=== PATIENT | female | born 1960 | race African-American/Black ===

== ENCOUNTER 2016-07-01 22:05 | Inpatient (IN) | payer SELFPAY ==
--- NOTE | ~2016-07-01 | DS ---
Discharge Summary [place] [address] [facility] [place]. [address] NAME: ERNESTO CAPPS : 56 STATUS : DIS IN PAT#: [id number] AGE: 56 ADM/REG DATE : 07/02/16 MR#: [id number] REPORT SERV DATE: 07/23/16 DICTATED BY: ERIC RUDOLPH DATE: 07/22/16 REPORT STATUS : Draft TRANSCRIBED BY: MODL DATE: 07/22/16 ADMISSION DATE: 07/02/2016 DISCHARGE DATE: 07/22/2016 DISCHARGE DIAGNOSES: 1. Metastatic stage IV urothelial bladder cancer, previous laparoscopic radical anterior pelvic exenteration with lymph node dissection with open ileal conduit on 05/30/2015 and subsequent chemotherapy in 2015. 2. Partial small bowel obstruction secondary to #1. 3. Abdominal pain secondary to #1 and #2. 4. Moderate protein-calorie malnutrition. 5. Diabetes mellitus type 2. 6. Grief with anxiety. IMAGIN. CT abdomen and pelvis, 07/01/2016, impression: High-grade partial small bowel obstruction pattern involving a relatively short segment of the jejunum. The transition zone is not discretely identified. 2. Abdominal series, 07/03/2016, impression: No acute cardiopulmonary process demonstrated. NG tube in good position. Distention of proximal small bowel persistent but appears improved from previous. 3. KUB, 07/02/2016, impression: NG/OG tube in place with its distal tip projecting over the distal stomach and proximal duodenum. Persistent but improving small bowel dilatation on CT from 07/01/2016. There is gas and moderate stool in the colon. 4. Abdominal x-ray, 07/08/2016, impression: Unremarkable gas pattern. No evidence of obstruction. 5. Abdominal x-ray, 07/09/2016, impression: Surgical changes. Residual contrast is present, primarily in the distal colon. No evidence of acute abnormality within the abdomen. 6. CT abdomen and pelvis, 07/15/2016, impression: Main finding is that despite distended jejunum, contrast does pass through the small bowel into the colon and extends to the distal descending colon. COURSE OF HOSPITAL STAY: Please refer to history and physical dictated by Dr. Jose De Jesus Reid on 07/02/2016 for complete admission details as well as consultation note by Dr. Gomez, Dr. Dutta, Dr. Martin, and Dr. Meet Pittman. Please also review interim notes on 07/06/[address] Moreno, 07/13/[address] Jaquez, and 07/19/[address] Moreno. This patient is a 56-year-old female who presented with a history of high-grade urothelial bladder cancer status post pelvic exenteration with ileal conduit for neuro bladder, who presented to [facility] Emergency Room with complaints of a five-day history of nausea and vomiting and inability to tolerate any significant oral intake. The patient was found to have signs of a small bowel obstruction. Surgery was consulted. The patient was evaluated. NG tube has been placed initially upon admission. It was noted that the patient was not improving despite decompression attempts with the NG tube. The patient was taken to surgery on 07/04/2016 for a diagnostic lap and converted to an open exploratory laparotomy. Discharge Summary [place] [address] [facility] [place]. [address] NAME: ERNESTO CAPPS : 56 STATUS : DIS IN PAT#: [id number] AGE: 56 ADM/REG DATE : 07/02/16 MR#: [id number] REPORT SERV DATE: 07/23/16 DICTATED BY: ERIC RUDOLPH DATE: 07/22/16 REPORT STATUS : Draft TRANSCRIBED BY: JIN DATE: 07/22/16 It was also noted extensive lysis of adhesions, small bowel bypass with enteroenterostomy, and NG tube placement. It was discussed possible TPN being started. Due to the risk would have been greater than the benefit of the end-stage intraabdominal malignancy, this was discontinued. IV fluids were also discontinued. The patient's pain has been managed with Dilaudid IV. Due to progression of disease, per Oncology, the patient was referred to hospice. The patient was seen and evaluated by [facility] and has agreed to go home with hospice today. Family is at bedside. The patient does deny any questions at this time and is in agreement with the treatment plan. Discharge medications will be per [facility]. This discharge took less than 30 minutes. /NELDAL Eric Rudolph NP / [id number] CC: Tremaine Pimentel MD
--- NOTE | ~2016-07-01 | HP ---
History And Physical [place] [id number] [facility] [place]. [address] NAME: ERNESTO CAPPS : 56 STATUS : ADM IN [facility]#: [id number] AGE: 56 ADM/REG DATE : 07/02/16 MR#: [id number] REPORT SERV DATE: 07/02/16 DICTATED BY: HAMMAD BRADLEY DATE: 07/02/16 REPORT STATUS : Draft TRANSCRIBED BY: JIN DATE: 07/02/16 DATE OF ADMISSION: 07/02/2016 POINT OF ENTRY: [facility] Emergency Department. PRIMARY CARE PHYSICIAN: None at this time but does go to the [facility]. CHIEF COMPLAINT: Nausea, vomiting, and rectal pain. HISTORY OF PRESENT ILLNESS: Ms. Capps is a 56-year-old female with a history of high- grade urothelial bladder cancer, status post pelvic exenteration with ileal conduit for neobladder, who presents to emergency department today with a five-day history of nausea, vomiting, inability to tolerate any significant oral intake, as well as constipation and rectal and vaginal pain. The patient states over the last five days she has had nausea, vomiting, inability to tolerate any oral intake including food and water. She states she has not had any bowel movements since Thursday when she had a very small bowel movement. She denies any abdominal pain, but does report some rectal pain as well as chronic vaginal discomfort and pain. The patient states she recently saw [facility], Dr. Nevarez, and was given some prescriptions for a vaginal suppository as well as some vaginal cream which is yet to be filled. She denies any fevers, night sweats, chills, cough, sputum production, chest pain, shortness of breath, diarrhea, melena, hematochezia, hemoptysis, or hematemesis. Comprehensive review of systems otherwise negative unless listed in the history of present illness. Initial evaluation in the emergency department notable for a white count of 10,600, BUN of 71, creatinine of 2.29. CT scan of the abdomen and pelvis shows a high-grade partial small- bowel obstruction involving a short segment of the jejunum with no clear transition zone, does show significant fecal stasis of the colon. The patient was subsequently admitted to the Hospitalist Service for further evaluation and management. PREVIOUS MEDICAL HISTORY: 1. High-grade urothelial bladder cancer, status post pelvic exenteration with ileal conduit creation. 2. COPD, not on home oxygen. 3. Hypertension. 4. Insulin-dependent diabetes mellitus, type 2. Hemoglobin A1c of 8.1. 5. Prior history of high-grade small-bowel obstruction. 6. Recent admission for opiate-induced constipation. SURGICAL HISTORY: 1. Pelvic exenteration with lymph node dissection with ileal conduit and urinary diversion History And Physical [address] [address] NAME: ERNESTO CAPPS : 56 STATUS : ADM IN PAT#: [id number] AGE: 56 ADM/REG DATE : 07/02/16 MR#: [id number] REPORT SERV DATE: 07/02/16 DICTATED BY: HAMMAD BRADLEY DATE: 07/02/16 REPORT STATUS : Draft TRANSCRIBED BY: JIN DATE: 07/02/16 creation. 2. x3. ALLERGIES: NO KNOWN DRUG ALLERGIES. HOME MEDICATIONS: 1. Tylenol 500 to 1000 mg daily p.r.n. 2. Norvasc 10 mg daily. 3. Estradiol vaginal cream 4 to 5 nights weekly. 4. Hydralazine 10 mg b.i.d. 5. Insulin sliding scale. 6. Levemir 12 units b.i.d. 7. Reglan 10 mg q.6 hours p.r.n. 8. Toprol-XL 50 mg daily. SOCIAL HISTORY: Denies any tobacco or illicits. Mother with diabetes. Father with diabetes and liver cancer. Siblings with diabetes and hypertension. LABS AND IMAGIN. White count 10.6, hemoglobin 13.5, hematocrit 39.7, and platelet count 393. 2. Sodium is 126, potassium 2.9, chloride 77, carbon dioxide 36, BUN 71, creatinine 2.29, glucose is 195, calcium is 9.6, protein is 9.1, albumin is 4.3, bilirubin is 0.4, ALT is 16, AST 16, and alkaline phosphatase is 108. 3. Lipase is 153. 4. Urinalysis: Spec gravity 1.015 with trace ketones, cloudy appearance with no evidence of any infection. 5. CT scan of the abdomen and pelvis shows high-grade partial small-bowel obstruction involving a short segment of the jejunum. Transition zone is not discretely identified. Large retained fecal material in ascending and transverse colon which may represent clinically significant fecal stasis. Status post cystectomy and ileal conduit construction, right anterior pelvic wall. Poorly defined pelvic soft tissue planes were there as infiltration in the region of the original bladder bed and apparent thickening of the sigmoid colon. This is poorly characterized due to lack of oral and IV contrast and low-dose CT technique. PHYSICAL EXAMINATION: VITAL SIGNS: Temperature is 98.6 degrees Fahrenheit, pulse is 98, respirations 16, saturating 97% on room air. Blood pressure 120/66. On recheck, blood pressure 134/58, heart rate of 111. GENERAL: The patient is awake, alert, in no acute distress, resting comfortably in bed. She is a well-developed, well-nourished, -[place] female. HEENT: Atraumatic and normocephalic. Slightly dry mucous membranes. Pupils equal, round, reactive to light and accommodation. Extraocular eye movements are intact. No scleral icterus. NECK: No jugular venous distention or carotid bruits. CARDIAC: Tachycardic rate, regular rhythm. No murmurs or gallops. Normal S1, S2. LUNGS: Clear to auscultation bilaterally. No wheezes, rhonchi, or crackles. History And Physical [address] [address] NAME: ERNESTO CAPPS : 56 STATUS : ADM IN [facility]#: [id number] AGE: 56 ADM/REG DATE : 07/02/16 MR#: [id number] REPORT SERV DATE: 07/02/16 DICTATED BY: HAMMAD BRADLEY DATE: 07/02/16 REPORT STATUS : Draft TRANSCRIBED BY: JIN DATE: 07/02/16 ABDOMEN: Does have some high-pitched hyperactive bowel sounds in all quadrants, more so in the left upper quadrant. She has no rebound, guarding, or rigidity. She has an ileal conduit with urinary diversion in place in the right lower quadrant EXTREMITIES: Warm, perfused. No cyanosis, clubbing, or edema. SKIN: Warm and dry. PSYCH: Affect appropriate. NEURO: Alert and oriented x3. Cranial nerves 2 through 12 grossly intact. Speech is normal. Gait not assessed. ASSESSMENT AND PLAN: Ms. Capps is a 56-year-old female, who presents with a few days of nausea, vomiting, and constipation found to have evidence of a high-grade partial small- bowel obstruction. PROBLEM LIST: 1. High-grade partial small-bowel obstruction. 2. Acute kidney injury. 3. Hyponatremia. 4. Hypokalemia. 5. Fecal stasis. 6. Rectal pain. 7. Vaginal pain. 8. Leukocytosis. 9. History of high-grade urothelial bladder cancer. PLAN: 1. High-grade partial small-bowel obstruction. Dr. Gomez, General Surgery, was contacted by the ER physician and will see patient in the morning. We will place an NG tube and provide aggressive IV fluid hydration as well as pain control and antiemetics. We will follow up KUB in the morning. 2. Acute kidney injury. All likely secondary to patient's poor oral intake for the past five days as well as nausea and vomiting. Provide aggressive IV fluid hydration. Checking urine lytes as well as a renal ultrasound. 3. Hypokalemia. Repletion per MD given acute kidney injury. She has received a total of 40 mEq of potassium chloride here in the emergency department. 4. Fecal stasis. We will provide some p.r.n. suppositories in an attempt to clear up apparent fecal stasis on CT scan. 5. Rectal pain. Unclear etiology at this time. CT scan of the abdomen and pelvis did show fecal stasis as well as small-bowel obstruction as well as some ill-defined abnormalities in the area of the original bladder bed with apparent thickening of the sigmoid colon. Unclear as to what this may represent or if this is the etiology of her rectal pain. I will defer to Surgery for further evaluation. 6. Vaginal pain. The patient reports she recently had [facility] evaluation by Dr. Nevarez, was prescribed vaginal suppositories, some Estrace cream, which we will continue. Given continued concern about vaginal pain by patient, we will ask Dr. Nevarez to see patient here in the hospital. 7. DVT prophylaxis. Heparin subcu. History And Physical [place] [address] [facility] [place]. [address] NAME: ERNESTO CAPPS : 56 STATUS : ADM IN [facility]#: [id number] AGE: 56 ADM/REG DATE : 07/02/16 MR#: [id number] REPORT SERV DATE: 07/02/16 DICTATED BY: HAMMAD BRADLEY DATE: 07/02/16 REPORT STATUS : Draft TRANSCRIBED BY: JIN DATE: 07/02/16 CODE STATUS: The patient wished to be full code. PARVEEN/JIN Hammad Bradley MD / [id number] CC: Kapil Moreno M.D.
--- NOTE | ~2016-07-01 | CN ---
Consultation Report [place] [address] [place]. [address] NAME: ERNESTO CAPPS : 56 STATUS : ADM IN [facility]#: [id number] AGE: 56 ADM/REG DATE : 07/02/16 MR#: [id number] REPORT SERV DATE: 07/02/16 DICTATED BY: ENOCH HAYES DATE: 07/02/16 REPORT STATUS : Draft TRANSCRIBED BY: MODL DATE: 07/02/16 DATE OF CONSULTATION: 07/02/2016 CHIEF COMPLAINT: Small-bowel obstruction. HISTORY OF PRESENT ILLNESS: A 56-year-old female with an extensive past medical and surgical history for high-grade urothelial bladder cancer, status post pelvic exoneration with ileal conduit creation. The patient reports over approximately six days ago, she started having nausea and vomiting and she has had constipation with minimal flatus. She denies any abdominal pain throughout this time. She has no fever or chills. No shortness of breath or chest pain. She reports she had a similar episode last year in September that resolved with medical management and no operation. REVIEW OF SYSTEMS: All systems reviewed and negative except as mentioned in the HPI. ALLERGIES: NO KNOWN DRUG ALLERGIES. PAST MEDICAL HISTORY: 1. High-grade urothelial bladder cancer, status post pelvic exoneration with ileal conduit creation and chemotherapy. 2. COPD, now on oxygen, not requiring daily breathing treatments or inhaler treatments. 3. Hypertension. 4. Insulin-dependent diabetes. 5. History of high-grade small-bowel obstruction now resolved with medical management alone. 6. Opiate-induced constipation. SURGICAL HISTORY: 1. Robotic pelvic exoneration and lymph node dissection with ileal conduit creation. 2. x3. 3. Gluteal abscess I and D. FAMILY HISTORY: Father and brother with liver cancer and a great grandmother with breast cancer. SOCIAL HISTORY: Currently denies any tobacco, alcohol, or drugs. The patient does have a remote history of 40+ pack-year smoking, as well as drinking in the past. Lives with here in [place]. HOME MEDICATIONS: Tylenol, Norvasc, estradiol, vaginal cream, hydralazine, insulin, Levemir, Reglan, and Toprol-XL. PHYSICAL EXAMINATION: VITAL SIGNS: Blood pressure 170/81, pulse of 83, respiratory rate 18, and O2 sats 93% on Consultation Report [place] [id number] [place]. [address] NAME: ERNESTO CAPPS : 56 STATUS : ADM IN PAT#: [id number] AGE: 56 ADM/REG DATE : 07/02/16 MR#: [id number] REPORT SERV DATE: 07/02/16 DICTATED BY: ENOCH HAYES DATE: 07/02/16 REPORT STATUS : Draft TRANSCRIBED BY: JIN DATE: 07/02/16 room air. Temperature 97.6. GENERAL: Well-developed, well-nourished, in no acute distress, black female, appears stated age. HEENT: Normocephalic, atraumatic. PERRLA. EOMI. Mucous membranes are moist. NECK: No lymphadenopathy. Trachea midline. CARDIOVASCULAR: Regular rate and rhythm. LUNGS: Clear to auscultation bilaterally. ABDOMEN: Soft, nondistended, nontender. Bowel sounds are present. The ileal conduit stoma is viable. EXTREMITIES: No clubbing, cyanosis, or edema. 2+ pulses. MUSCULOSKELETAL: Moves all extremities well. NEURO: Cranial nerves 2 through 12 are intact. A and O x3. LABORATORY DATA: White blood cell count 2.6. No shift noted. Hematocrit 39.7 and platelets 393. Urinalysis negative. Sodium 126, potassium 2.9, chloride 77, bicarb 36, BUN 71, creatinine 2.29, glucose 195, calcium 9.6, albumin 4.3. LFTs normal. Lactate 0.9. CT scan showed a high-grade small-bowel obstruction with jejunum dilation to 4.1 cm with a transition zone noted to be in the pelvis. The patient also was noted to have a large stool burden. ASSESSMENT AND PLAN: A 56-year-old female with small-bowel obstruction, hyponatremia, hypokalemia, acute kidney injury, all signs of dehydration, lactate were normal, and a constipation. 1. IV fluid resuscitate the patient. Keep the patient n.p.o. for bowel rest with nasogastric tube placement. The patient should also be encouraged to ambulate in the halls. 2. If no resolution of small-bowel obstruction in approximately 48 hours, then a small bowel followthrough should be ordered. DICTATED BY: MD RAUL Dobbs/JIN Spencer Hayes M.D. / [id number] CC: Kapil Moreno M.D.
--- NOTE | ~2016-07-01 | IDS ---
Interim Discharge Summary [facility] [address] [place]. [address] NAME: ERNESTO CAPPS : 56 STATUS : ADM IN PAT#: [id number] AGE: 56 ADM/REG DATE : 07/02/16 MR#: [id number] REPORT SERV DATE: 07/14/16 DICTATED BY: MALVIN MCCULLOUGH DATE: 07/14/16 REPORT STATUS : Draft TRANSCRIBED BY: JIN DATE: 07/14/16 ADMISSION DATE: 07/02/2016 DISCHARGE DATE: Date that I took over this patient is 07/08/2016 and have cared for this patient until 07/14/2016. DIAGNOSES: Please also see interim discharge summary dictated by Dr. Moreno. So far the diagnoses are: 1. Metastatic bladder cancer. 2. Status post extensive abdominal surgery for the metastatic bladder cancer and small bowel obstruction. These surgeries include lysis of multiple adhesions, status post gastrostomy, status post enteroenteric anastomosis, status post ileal conduit. 3. Despite the extensive abdominal surgeries the patient has had, the patient is doing fairly well, and requires quite a bit of assistance with ambulation, but she has been ambulating with the help of assistance, and with help of a walker. 4. Chronic severe malnutrition for which the patient continues to get TPN. 5. The only new event that occurred during my time that I took care of this patient was that she was started on TPN for chronic severe malnutrition, as the patient could not take enough by mouth. Hence, the patient is now on TPN and getting a little stronger. CONSULTANTS: Consults on this patient have been of course General Surgery and Oncology. DISPOSITION: Disposition of this patient is to inpatient rehab given the multitude of problems, and the severity of medical issues, and including the fact that the patient is on TPN. However, social issues include that the patient does not have any insurance. Hence porter sample case are trying to obtain insurance and trying to place her in inpatient rehab. If this does not happen soon and if the patient gets stronger, we may have to present options to family saying that she may have to go home with home health versus inpatient rehab. However, with the condition that she is in right now family prefers inpatient rehab and we are waiting on this. SITA/JIN Malvin Mccullough M.D. / [id number] CC: Malvin Mccullough M.D.
--- NOTE | ~2016-07-01 | IDS ---
Interim Discharge Summary [facility] [address] [place]. [address] NAME: ERNESTO CAPPS : 56 STATUS : ADM IN PAT#: [id number] AGE: 56 ADM/REG DATE : 07/02/16 MR#: [id number] REPORT SERV DATE: 07/07/16 DICTATED BY: JUAN MORENO DATE: 07/07/16 REPORT STATUS : Draft TRANSCRIBED BY: MODL DATE: 07/07/16 ADMISSION DATE: 07/02/2016 DISCHARGE DATE: ADDENDUM: Addendum to the interim summary on Ernesto Capps. . Her medical oncologist Dr. Banks has been consulted. I talked with his partner Dr. Mendiola covering for the weekend, and then I see the notes from both Dr. Mendiola and Dr. Banks, who indicates that the patient might be a candidate for specialized therapy if she is able to eat, ambulate, and be up at home. GUDELIA/JIN Juan Moreno M.D. / [id number] CC: Juan Moreno M.D.
--- NOTE | ~2016-07-01 | OP ---
Record Of Operation [place] [address] [facility] [place]. [address] NAME: ERNESTO MOSS : 56 STATUS : ADM IN PAT#: [id number] AGE: 56 ADM/REG DATE : 07/02/16 MR#: [id number] REPORT SERV DATE: 07/04/16 DICTATED BY: MAO DUTTA DATE: 07/04/16 REPORT STATUS : Draft TRANSCRIBED BY: MODL DATE: 07/04/16 DATE OF PROCEDURE: 07/04/2016 PREOPERATIVE DIAGNOSES: 1. Small-bowel obstruction. 2. History of extensive pelvic exenteration with ileal conduit for bladder cancer by Dr. Moss. POSTOPERATIVE DIAGNOSES: 1. Small-bowel obstruction. 2. History of extensive pelvic exenteration with ileal conduit for bladder cancer by Dr. Moss. 3. Recurrent metastatic bladder cancer. PROCEDURE: 1. Diagnostic laparoscopy converted to open exploratory laparotomy. 2. Extensive lysis of adhesions. 3. Small bowel bypass with enteroenterostomy. 4. Open Sarahy gastrostomy tube 24-South African. SURGEONS: Mao Dutta MD. MANAGER CONSUMER INSIGHTS: Saud. ANESTHESIA: General. ESTIMATED BLOOD LOSS: 25 mL. SPECIMEN: Small bowel implant frozen, which was confirmed adenocarcinoma. COMPLICATIONS: None. BRIEF HISTORY: Ms. Moss is a 56-year-old woman who was about a year out from an extensive pelvic exenteration with cystectomy and ileal conduit by Dr. Moss. She had T4 disease which made her high risk for recurrence. She had presented with small-bowel obstruction back in March and resolved with NG tube decompression. She re-presented, small-bowel follow-through this time showed a high-grade partial small bowel obstruction. She had tenderness and tachycardia this morning and elected for surgery. Diagnostic laparoscopy with possible open possible bowel resection was recommended. The procedure with the risks including bleeding, infection, injury to surrounding structures, fecal fistula, and hernia were all explained. She agreed to proceed. DESCRIPTION OF PROCEDURE: After consent was obtained, she was taken to the operating room and placed in supine position on the operating table. General endotracheal anesthesia was administered. The abdomen was then prepped and draped in normal sterile fashion. We removed the urostomy appliance and placed a Wright catheter within the urostomy and blew up Record Of Operation [place] [address] [place]. [address] NAME: ERNESTO MOSS : 56 STATUS : ADM IN PAT#: [id number] AGE: 56 ADM/REG DATE : 07/02/16 MR#: [id number] REPORT SERV DATE: 07/04/16 DICTATED BY: MAO DUTTA DATE: 07/04/16 REPORT STATUS : Draft TRANSCRIBED BY: MODL DATE: 07/04/16 the balloon and excluded this in the field using a towel with tra. Preoperative antibiotics were administered. SCDs were placed. Time-out was performed. We began by making a cutdown on the left upper quadrant and placed a 12 mm trocar. The abdomen was insufflated to 15 mmHg of CO2 gas. Scope was inserted. There was no evidence of injury upon placement of trocar. She had extensive adhesions up to the anterior abdominal wall with decompressed small bowel. We initially placed a 5 mm trocar in the left lower quadrant and used a laparoscopic scissors to take down adhesions so that we could place an additional trocar for continued adhesiolysis. We took down all the adhesions from the anterior midline down to the pelvis where we met significant firm adhesions, which were not safe to take laparoscopically. We then removed all trocars, and then, we made a midline laparotomy incision using a 10-blade scalpel. The fascia was opened throughout the length of the incision. There were additional lysis of adhesions that had to take place in the cephalad aspect in order to extend the skin incision cephalad. We then continued adhesiolysis down to all the small bowel over to the ileal conduit which we could palpate using the balloon in the Wright. We took down extensive bowel to bowel and bowel sidewall adhesions. We got down the pelvis and noticed that it was socked in the pelvis extensively with very hard nodules down in the pelvis. It was difficult to tell what was proximal and what was distal at this point. We were able to free up some of the small bowel away from these nodules and took a specimen and sent it to pathology. Frozen section returned as metastatic adenocarcinoma. Given that she was socked in the pelvis and her ureters course through that area, there was no way to safely dissect this out. There would be no way to get all the remaining a malignancy out as well and therefore, we elected for bypass. We spent considerable amount of time, dissecting the bowel out. We identified the terminal ilium; however, the terminal ilium dove into the pelvis as at all sections of the proximal bowel. We identified what we felt to be the terminal ilium and bypassed to section as proximal as possible away from this; however, it does go into the pelvis. We placed bowel clamps on both the dilated bowel and decompressed bowel and placed towels to control contamination. We placed stay sutures of 2-0 silk suture and then a posterior row of 2-0 silk Lembert. We opened the bowel, both the dilated and decompressed bowel and then created a hand-sewn two-layer anastomosis using 3-0 Vicryl runners in a canal fashion and then an anterior row of 2-0 silk Lembert. We had a good palpable lumen. We then removed our bowel clamps. Given the fact that she has malignancy down the pelvis where there was bowel even at the bypass was entering into, we felt that placing a gastrostomy tube would be prudent as she likely will obstruct at some point in future and this will allow her to vent without having to live with an NG tube. 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 We grasped the stomach with a Martha clamp and pulled it caudally. We placed two 2-0 silk pursestring sutures and then created a gastrotomy using electrocautery. We brought a 24- South African gastrostomy tube and placed it through our previous 12 mm cutdown incision and then into the stomach. We blew up the balloon. We then tied our pursestring sutures starting with the inner one and then the outer one. I then placed two pexing sutures from the stomach to the anterior abdominal wall. It was secured at 3 cm at the skin. We had two serosal tears, but no enterotomies. Both were closed using interrupted 2-0 silk sutures. We then irrigated the abdomen copiously. Hemostasis was good. We then closed the fascia using interrupted #1 PDS sutures. Subcutaneous tissues were irrigated with sterile saline Record Of Operation [facility] [address] [place]. [address] NAME: ERNESTO MOSS : 56 STATUS : ADM IN [facility]#: [id number] AGE: 56 ADM/REG DATE : 07/02/16 MR#: [id number] REPORT SERV DATE: 07/04/16 DICTATED BY: MAO DUTTA DATE: 07/04/16 REPORT STATUS : Draft TRANSCRIBED BY: JIN DATE: 07/04/16 and closed using tra. The abdomen was clean. Sterile dressing was applied. The patient tolerated the procedure well. She was sent to the recovery room in stable condition. DENZEL/JIN Mao Dutta MD / [id number] CC: Kapil Moreno M.D.
--- NOTE | ~2016-07-01 | IDS ---
Interim Discharge Summary [facility] [address] [place]. [address] NAME: ERNESTO CAPPS : 56 STATUS : ADM IN PAT#: [id number] AGE: 56 ADM/REG DATE : 07/02/16 MR#: [id number] REPORT SERV DATE: 07/20/16 DICTATED BY: JUAN MORENO DATE: 07/20/16 REPORT STATUS : Draft TRANSCRIBED BY: MODL DATE: 07/20/16 ADMISSION DATE: 07/02/2016 DISCHARGE DATE: CONSULTANTS: 1. Spencer Gomez M.D. and Pedro Dutta MD, Surgery. 2. Esau Martin MD, Urology. 3. Meet Pittman M.D., Oncology. PROBLEM LIST: 1. Metastatic stage IV urothelial bladder cancer, despite previous laparoscopic radical anterior pelvic exoneration with lymph node dissection and open ileal conduit on 05/30/2015 and subsequent chemotherapy in 2015. 2. Ongoing partial small bowel obstruction with ileus despite previous surgical lysis of adhesion with G-tube placement and small bowel bypass on 07/04/2016. 3. Chief previous acute kidney injury from volume depletion, resolved. 4. Previous hyponatremia from volume depletion, resolved. 5. Diabetes mellitus type 2 with previous diabetic ketoacidosis, currently with low sugars. 6. Grief with anxiety. 7. History of chronic obstructive pulmonary disease in a heavy smoker. 8. History of alcohol use. 9. Moderate protein-calorie malnutrition. HISTORY: This patient has ongoing issues of similar nature to when I dictated my last interim summary on 07/07/2016. In the interim, I have discussed with her Dr. Meet Pittman and with his partner, Dr. Winters, about the TPN; and at this point in time, the risk would be greater than the benefit as end-stage intraabdominal malignancy it is not going to be able to be treated, it is not going to improve with TPN, so we have weaned her off the TPN. I have also stopped her IV fluids. The patient is able to take some things by mouth, both liquid and nutrition. She is very anorexic. She intermittently has the G-tube unclamped to relieve nausea. The other issue has been pain management. She had been using Dilaudid IV on a pretty regular basis, but I have talked to her and her multiple times about the importance of trying to prepare a transition plan for when she is not in the hospital. Currently, she still has a Duragesic patch 50 mcg size and she has p.r.n. Dilaudid available intravenously, but we are predominantly having nursing gave it to her orally and we have gradually been titrating the dose up. Her pain is primarily in the pelvis bilaterally and radiates to her low back, also radiates down her right leg. Because of that radiation down her right leg, I have also been adding gabapentin in case there is a neuropathic component to her pain and she has a lot of anxiety about this process, so I have added p.r.n. Ativan as well. She is now DNR/DNI per discussions with myself and with Dr. Winters. She has agreed to hospice consultation, they have met with her as of today, she still does not want to make a Interim Discharge Summary [address] [address] NAME: ERNESTO CAPPS : 56 STATUS : ADM IN PAT#: [id number] AGE: 56 ADM/REG DATE : 07/02/16 MR#: [id number] REPORT SERV DATE: 07/20/16 DICTATED BY: JUAN MORENO DATE: 07/20/16 REPORT STATUS : Draft TRANSCRIBED BY: JIN DATE: 07/20/16 decision about it. On multiple occasions, I have talked with her and her family together about the fact that this appears to be a terminal condition and that Oncology will not give her immunotherapy unless she is able to increase her nutrition dramatically and maintain it in a normal sense for at least a month. I have told her and family that odds of that her extraordinarily small, and therefore, it is most likely that the malignancy will take her life in the next few months. I, therefore, advised her and her family to have hospice assistance. The patient states she understands her poor prognosis. She still hoping for a miracle. I have assured her that we would all be thrilled if such took place, but that she ought to make plans in case it does not. At this point in time, she has not wanted to make any plan whatsoever. I am hoping that if we can get her pain medicine and home medicines orally, then we can make realistic plans for discharge to home. The patient understandably has grief and anxiety. Her , son, mother, and multiple others have been updated on a regular basis. GUDELIA/JIN Juan Moreno M.D. / [id number] CC: Juan Moreno M.D.
--- NOTE | ~2016-07-01 | CN ---
Consultation Report [facility] [address] [place]. [address] NAME: ERNESTO CAPPS : 56 STATUS : ADM IN [facility]#: [id number] AGE: 56 ADM/REG DATE : 07/02/16 MR#: [id number] REPORT SERV DATE: 07/05/16 DICTATED BY: EVAN MARTIN DATE: 07/05/16 REPORT STATUS : Draft TRANSCRIBED BY: MODChucho DATE: 07/05/16 CONSULTATION DATE OF CONSULTATION: 07/03/2016 REASON FOR CONSULTATION: History of bladder cancer, now with bowel obstruction. HISTORY OF PRESENT ILLNESS: Ms. Capps is a 56-year-old female, who is well known to me. She has a history of aggressive bladder cancer, for which she underwent a robotic anterior pelvic exenteration with ileal conduit urinary diversion about a year ago. She was found to have T4 N+ disease. She underwent adjuvant chemotherapy. She has done okay in the interim. She has intermittent problems with bowel obstruction and vaginal pain. Recent CT scans done at [facility] demonstrated nonspecific findings in the pelvis with no obvious evidence of widespread metastatic disease. She presented to the hospital with severe abdominal and pelvic pain with nausea and vomiting. CT scan was performed, which demonstrated a partial small-bowel obstruction, which was confirmed on small-bowel follow- through. She has failed conservative management in the past. There are plans and process for potential surgical intervention. I have been asked to become re-involved in her case given her history of a complex urinary diversion. PAST MEDICAL HISTORY: Bladder cancer, status post pelvic exenteration with ileal conduit; COPD; hypertension; diabetes; history of bowel obstruction; constipation. PAST SURGICAL HISTORY: Bladder cancer surgery as above and C-sections. ALLERGIES: NO KNOWN DRUG ALLERGIES. MEDICATIONS: Reviewed and listed in the chart. SOCIAL HISTORY: No smoking, drinking, or illegal drugs. She is accompanied by her family. REVIEW OF SYSTEMS: A 12-point review of systems was performed. Pertinent positives are listed in the HPI. PHYSICAL EXAMINATION: VITAL SIGNS: She is afebrile. She is tachycardic into the 110s to 120s. Her blood pressure is elevated into the 170s over 80s. She is saturating 94% on room air. GENERAL: She is in no acute distress. She appears her stated age. HEENT: Her head is normocephalic and atraumatic. There is an NG tube in place. ABDOMEN: Distended and tender. She has no CVA tenderness. Her right lower quadrant urostomy is pink and productive, urine is clear. EXTREMITIES: There is no cyanosis or edema. NEUROLOGIC: She is alert and oriented x3. Consultation Report [place] [id number] [address] NAME: ERNESTO CAPPS : 56 STATUS : ADM IN PAT#: [id number] AGE: 56 ADM/REG DATE : 07/02/16 MR#: [id number] REPORT SERV DATE: 07/05/16 DICTATED BY: EVAN MARTIN DATE: 07/05/16 REPORT STATUS : Draft TRANSCRIBED BY: JIN DATE: 07/05/16 LABORATORY DATA: Her white count is 9.6, hemoglobin 13.2. Creatinine is 0.9. IMAGING: CT scan of the abdomen and pelvis was performed, personally reviewed and interpreted by myself. She has dilated loops of small bowel. She has loss of tissue planes in the pelvis. These findings are consistent with a partial small-bowel obstruction. ASSESSMENT AND PLAN: Ms. Capps has a recurring partial small-bowel obstruction. I recommend continuing conservative therapy as directed by General Surgery, I certainly appreciate their help with this complex case. Should surgical intervention be necessary, I am available at any time to assist in any way that is needed. I will continue to follow the patient closely. CALEB/JIN Evan Martin MD / [id number] CC: Evan Martin MD
--- NOTE | ~2016-07-01 | IDS ---
Interim Discharge Summary [facility] [address] [place]. [address] NAME: ERNESTO CAPPS : 56 STATUS : ADM IN PAT#: [id number] AGE: 56 ADM/REG DATE : 07/02/16 MR#: [id number] REPORT SERV DATE: 07/07/16 DICTATED BY: JUAN MORENO DATE: 07/07/16 REPORT STATUS : Draft TRANSCRIBED BY: MODL DATE: 07/07/16 ADMISSION DATE: 07/02/2016 DISCHARGE DATE: CONSULTANTS: Dr. Elio Gomez and Dr. Pedro Dutta, Surgery. Dr. Esau Martin, Urology. PROBLEM LIST: 1. Metastatic stage IV urothelial bladder cancer, despite previous laparoscopic radical anterior pelvic exoneration with lymph node dissection and open ileal conduit, 05/30/2015. 2. Small-bowel obstruction requiring surgical lysis of adhesions, small-bowel resection, and G-tube placement. 3. Acute kidney injury from volume depletion. 4. Hypernatremia. 5. Possible prior stroke. 6. Possible prior chronic obstructive pulmonary disease. 7. History of alcohol use. HISTORY: The patient has a history of advanced urothelial cancer, treated surgically by Dr. Martin on 05/30/2015 with the procedure described above. The patient presented to the emergency room on 07/02/2016 with nausea and vomiting and rectal pain. She was found to have signs of small-bowel obstruction. Surgery, Dr. Gomez, and Dr. Pedro Dutta saw the patient in followup. She had an NG tube to suction and n.p.o. and parenteral placement of fluids and electrolytes. The patient's small bowel follow-through on 07/03/2016 revealed partial small-bowel obstruction. Prominent dilatation of the proximal and mid jejunum. Followup abdominal films on 07/04/2016 revealed high-grade partial obstruction, the gastric lumen was distended with contrast. The patient was not improving despite decompression attempts with NG, so she was taken to the operating room on 07/04/2016 for diagnostic laparoscopy and converted to open exploratory laparotomy. There was extensive lysis of adhesions, small bowel bypass with enteroenterostomy, and an open G-tube placement. Postop, she has the usual pain. She has gotten a [employer] pump. She did develop acute kidney injury with volume depletion, but that resolved with her volume replacement. She has developed hypernatremia with free-water depletion and we are increasing her free water currently. She has been walking in the gurrola. Today, she does have some bowel sounds. She has not passed gas. Her abdomen is softer. Because of the hypernatremia, I have increased her free-water replacement. Surgery is ordering lactated Ringer's to replace her G-tube output. Surgery has also ordered TPN, but I would like to speak to them before the initiation of this as the patient has a soft abdomen at this time with bowel sounds and does not appear to have a potentially curable disease nor the promise of a long disease-free period. So, I Interim Discharge Summary [address] [facility] [address] NAME: ERNESTO CAPPS : 56 STATUS : ADM IN [facility]#: [id number] AGE: 56 ADM/REG DATE : 07/02/16 MR#: [id number] REPORT SERV DATE: 07/07/16 DICTATED BY: JUAN MORENO DATE: 07/07/16 REPORT STATUS : Draft TRANSCRIBED BY: MODL DATE: 07/07/16 have left my phone number with the surgeon to call me back. RSG/NELDAL Juan Moreno M.D. / [id number] CC: Juan Moreno M.D.
[2016-07-01 15:36] LABS: BASOPHILS 0.2 %; BASOPHILS ABSOLUTE 0.02 10/3/uL (0.0-0.16); EOSINOPHILS 0.2 %; EOSINOPHILS ABSOLUTE 0.02 10/3/uL (0.0-0.53); HEMATOCRIT 39.7 % (36.0-48.0); HEMOGLOBIN 13.5 g/dL (12.0-16.0); IMMATURE GRANULOCYTES 0.7 %; IMMATURE GRANULOCYTES ABSOLUTE 0.07 10/3/uL (0.0-0.11); LYMPHOCYTES 18.9 %; MEAN CORPUSCULAR HEMOGLOB 28.7 pg (26.0-34.0); MEAN PLATELET VOLUME 8.7 fL (9.2-13.0); MONOCYTES 7.7 %; MONOCYTES ABSOLUTE 0.82 10/3/uL (0.21-1.20); NEUTROPHILS 72.3 %; NEUTROPHILS ABSOLUTE 7.68 10/3/uL (2.02-8.40); RBC DISTRIBUTION WIDTH 13.1 % (12.0-16.0)
[2016-07-01 15:37] LABS: ER CBC TAT 0 Hrs 05 Mins; MANUAL DIFF NO %; MEAN CORPUSCULAR VOLUME 84.5 fL (80-100); PLATELET COUNT 393 10/3/uL (150-400); WHITE BLOOD CELLS 10.6 10/3/uL (4.5-10.5)
[2016-07-01 15:44] LABS: ASCORBIC ACID (UR NOT ORDER) NEG (NEG); BILIRUBIN, URINE NEGATIVE (NEG); ER URINALYSIS TAT 0 Hrs 12 Mins; KETONE, URINE TRACE MG/DL (NEG); LEUKOCYTE ESTERASE(NOT OR NEG (NEG); WBC (NOT ORDERED) (RFLEX) 5 (0-5)
[2016-07-01 15:47] LABS: NITRITE (URINE) NEG (NEG)
[2016-07-01 15:50] LABS: A/G RATIO 0.9 (0.7-1.9); ALBUMIN 4.3 G/DL (3.5-5.0); ALKALINE PHOSPHATASE 108 U/L (45-117); CALCIUM, SERUM 9.6 MG/DL (8.5-10.4); GLOBULIN 4.8 G/DL (2.5-4.1); SGOT(AST) 16 U/L (5-40); SGPT(ALT) 16 U/L (5-65); TOTAL BILIRUBIN 0.4 MG/DL (0-1.2); TOTAL PROTEIN 9.1 G/DL (6.0-8.5)
[2016-07-01 15:51] LABS: BUN (BLOOD UREA NITROGEN) 71 MG/DL (6-23); CHLORIDE, SERUM 77 MMOL/L (96-112); CO2 (CARBON DIOXIDE) 36 MMOL/L (24-34); CREATININE 2.29 MG/DL (0.55-1.02); GFR AFRICAN AMERICAN 26 ML/MIN (>=60); GFR NON AFRICAN AMERICAN 23 ML/MIN (>=60); GLUCOSE, SERUM 195 MG/DL (60-99); POTASSIUM, SERUM 2.9 MMOL/L (3.5-5.3); SODIUM, SERUM 126 MMOL/L (135-148)
[~2016-07-01 22:05] MED LIST: *UNABLE2; ADVAIR250 INH; APRES10B PO; ASAB PO; BENTYL20 PO; BISR PR; BIST PO; CIP5 PO; COZ25 PO; DENIES; DSS PO; HYDROCHLOROT25 MG PO; K500 PO; LACT30UDL PO; LEVEMIR SC; LINZESS 145 M145 MCG PO; LOP25 PO; LOP50 PO; MCZ125 PO; METHOC500B PO; METOPROLOL TARTRATE PO; MIRALAXPKT PO; MOMUD PO; MULTIVIT/MIN PO; NORCO1 TA1 PO; NORV10 PO; NORV5 PO; NORVASC PO; NOVOLOG SC; PCET PO; PERCOCET1 TA2 PO; PR25 PO; PRIN20 PO; PROAIR HFA INH; PROCTOZONE1 CRE PR; PYR200 PO; STOOL SOFTEN240 MG PO; T PO; ZESTRIL20 MG PO; ZOFRAN4 PO; ZOFRAN8 PO; [UNRECOGNIZED DRUG - OTHER] PO
[2016-07-01] MEDS ORDERED: NORV10 PO (23:40)
[2016-07-01] MEDS ORDERED: APRES10B PO (23:41)
[2016-07-01] MEDS ORDERED: TOPXL50 PO (23:49)
[2016-07-01] MEDS ORDERED: LOP50 PO (23:50)
[2016-07-01] MEDS ORDERED: REG PO (23:52)
[2016-07-01] MEDS ORDERED: ESTRACE VAGIN42.5 GM V (23:55)
[2016-07-01] MEDS ORDERED: LEVEMIR SC (23:55)
[2016-07-01] MEDS ORDERED: NOVOLOG SC (23:56)
[2016-07-01] MEDS ORDERED: ACET500CAP PO (23:58)
[2016-07-02 00:34] LABS: LACTATE 0.9 MMOL/L (0.3-2.4)
[2016-07-02 08:02] LABS: CALCIUM, SERUM 8.8 MG/DL (8.5-10.4); CO2 (CARBON DIOXIDE) 33 MMOL/L (24-34); POTASSIUM, SERUM 3.3 MMOL/L (3.5-5.3)
[2016-07-02 08:03] LABS: BUN (BLOOD UREA NITROGEN) 48 MG/DL (6-23); CHLORIDE, SERUM 89 MMOL/L (96-112); GFR AFRICAN AMERICAN 48 ML/MIN (>=60); GFR NON AFRICAN AMERICAN 41 ML/MIN (>=60); GLUCOSE, SERUM 151 MG/DL (60-99); SODIUM, SERUM 134 MMOL/L (135-148)
[2016-07-02 08:49] LABS: BASOPHILS 0.3 %; BASOPHILS ABSOLUTE 0.02 10/3/uL (0.0-0.16); EOSINOPHILS 0.8 %; EOSINOPHILS ABSOLUTE 0.06 10/3/uL (0.0-0.53); HEMOGLOBIN 11.5 g/dL (12.0-16.0); IMMATURE GRANULOCYTES 0.6 %; IMMATURE GRANULOCYTES ABSOLUTE 0.05 10/3/uL (0.0-0.11); LYMPHOCYTES 20.3 %; MEAN CORPUSCULAR HEMOGLOB 28.6 pg (26.0-34.0); MEAN CORPUSCULAR VOLUME 86.6 fL (80-100); MEAN PLATELET VOLUME 8.4 fL (9.2-13.0); MONOCYTES 9.5 %; MONOCYTES ABSOLUTE 0.75 10/3/uL (0.21-1.20); NEUTROPHILS 68.5 %; NEUTROPHILS ABSOLUTE 5.42 10/3/uL (2.02-8.40); PLATELET COUNT 313 10/3/uL (150-400); RBC DISTRIBUTION WIDTH 13.2 % (12.0-16.0); RED CELL COUNT 4.02 10/6/uL (4.0-5.6); WHITE BLOOD CELLS 7.9 10/3/uL (4.5-10.5)
[2016-07-02 08:50] LABS: HEMATOCRIT 34.8 % (36.0-48.0); MANUAL DIFF NO %
[2016-07-02 09:58] LABS: CREATININE, URINE 65.9 MG/DL
[2016-07-03 07:20] LABS: CALCIUM, SERUM 8.8 MG/DL (8.5-10.4); CHLORIDE, SERUM 96 MMOL/L (96-112); CO2 (CARBON DIOXIDE) 36 MMOL/L (24-34); CREATININE 0.94 MG/DL (0.55-1.02); GFR AFRICAN AMERICAN 78 ML/MIN (>=60); GFR NON AFRICAN AMERICAN 67 ML/MIN (>=60); POTASSIUM, SERUM 3.3 MMOL/L (3.5-5.3)
[2016-07-03 07:21] LABS: ALBUMIN 3.3 G/DL (3.5-5.0); BUN (BLOOD UREA NITROGEN) 22 MG/DL (6-23); GLUCOSE, SERUM 87 MG/DL (60-99); PHOSPHORUS, SERUM 1.9 MG/DL (2.5-4.5); SODIUM, SERUM 144 MMOL/L (135-148)
[2016-07-04 08:10] LABS: BASOPHILS 0.4 %; BASOPHILS ABSOLUTE 0.04 10/3/uL (0.0-0.16); EOSINOPHILS 0.3 %; EOSINOPHILS ABSOLUTE 0.03 10/3/uL (0.0-0.53); HEMOGLOBIN 13.2 g/dL (12.0-16.0); IMMATURE GRANULOCYTES 0.9 %; IMMATURE GRANULOCYTES ABSOLUTE 0.09 10/3/uL (0.0-0.11); LYMPHOCYTES 17.8 %; LYMPHOCYTES ABSOLUTE 1.72 10/3/uL (0.67-4.30); MEAN CORPUSCULAR HEMOGLOB 28.3 pg (26.0-34.0); MEAN PLATELET VOLUME 8.9 fL (9.2-13.0); MONOCYTES 6.1 %; MONOCYTES ABSOLUTE 0.59 10/3/uL (0.21-1.20); NEUTROPHILS 74.5 %; NEUTROPHILS ABSOLUTE 7.17 10/3/uL (2.02-8.40); PLATELET COUNT 379 10/3/uL (150-400); RED CELL COUNT 4.67 10/6/uL (4.0-5.6); WHITE BLOOD CELLS 9.6 10/3/uL (4.5-10.5)
[2016-07-04 08:16] LABS: HEMATOCRIT 43.3 % (36.0-48.0); MEAN CORPUSCULAR VOLUME 92.7 fL (80-100)
[2016-07-04 08:17] LABS: MANUAL DIFF NO %; MEAN CORPUS HGB CONC 30.5 g/dL (32.0-36.0)
[2016-07-04 08:30] LABS: CHLORIDE, SERUM 95 MMOL/L (96-112); CO2 (CARBON DIOXIDE) 33 MMOL/L (24-34); CREATININE 1.41 MG/DL (0.55-1.02); GFR AFRICAN AMERICAN 47 ML/MIN (>=60); GFR NON AFRICAN AMERICAN 41 ML/MIN (>=60); POTASSIUM, SERUM 3.7 MMOL/L (3.5-5.3); SODIUM, SERUM 144 MMOL/L (135-148)
[2016-07-04 08:31] LABS: BUN (BLOOD UREA NITROGEN) 27 MG/DL (6-23); GLUCOSE, SERUM 144 MG/DL (60-99)
[2016-07-05 08:55] LABS: BASOPHILS 0.2 %; BASOPHILS ABSOLUTE 0.02 10/3/uL (0.0-0.16); EOSINOPHILS 0 %; HEMOGLOBIN 11.2 g/dL (12.0-16.0); IMMATURE GRANULOCYTES 0.4 %; IMMATURE GRANULOCYTES ABSOLUTE 0.05 10/3/uL (0.0-0.11); LYMPHOCYTES 13.1 %; LYMPHOCYTES ABSOLUTE 1.72 10/3/uL (0.67-4.30); MEAN CORPUS HGB CONC 31.3 g/dL (32.0-36.0); MEAN CORPUSCULAR HEMOGLOB 28.4 pg (26.0-34.0); MEAN CORPUSCULAR VOLUME 90.9 fL (80-100); MEAN PLATELET VOLUME 8.7 fL (9.2-13.0); MONOCYTES ABSOLUTE 1.05 10/3/uL (0.21-1.20); NEUTROPHILS 78.3 %; NEUTROPHILS ABSOLUTE 10.27 10/3/uL (2.02-8.40); PLATELET COUNT 298 10/3/uL (150-400); RBC DISTRIBUTION WIDTH 14.1 % (12.0-16.0); RED CELL COUNT 3.94 10/6/uL (4.0-5.6); WHITE BLOOD CELLS 13.1 10/3/uL (4.5-10.5)
[2016-07-05 08:59] LABS: HEMATOCRIT 35.8 % (36.0-48.0); MANUAL DIFF NO %
[2016-07-05 09:13] LABS: ALBUMIN 2.8 G/DL (3.5-5.0); CO2 (CARBON DIOXIDE) 31 MMOL/L (24-34); CREATININE 1.73 MG/DL (0.55-1.02); GFR AFRICAN AMERICAN 37 ML/MIN (>=60); GFR NON AFRICAN AMERICAN 32 ML/MIN (>=60); POTASSIUM, SERUM 3.8 MMOL/L (3.5-5.3); SGOT(AST) 22 U/L (5-40); SGPT(ALT) 10 U/L (5-65); SODIUM, SERUM 146 MMOL/L (135-148); TOTAL BILIRUBIN 0.2 MG/DL (0-1.2)
[2016-07-05 09:15] LABS: BUN (BLOOD UREA NITROGEN) 36 MG/DL (6-23); CALCIUM, SERUM 8.4 MG/DL (8.5-10.4); CHLORIDE, SERUM 106 MMOL/L (96-112); GLUCOSE, SERUM 205 MG/DL (60-99)
[2016-07-05 09:16] LABS: A/G RATIO 0.7 (0.7-1.9); ALKALINE PHOSPHATASE 83 U/L (45-117); TOTAL PROTEIN 6.8 G/DL (6.0-8.5)
[2016-07-06 07:42] LABS: BASOPHILS 0.2 %; BASOPHILS ABSOLUTE 0.02 10/3/uL (0.0-0.16); EOSINOPHILS 1.5 %; EOSINOPHILS ABSOLUTE 0.16 10/3/uL (0.0-0.53); HEMATOCRIT 32.4 % (36.0-48.0); HEMOGLOBIN 9.9 g/dL (12.0-16.0); IMMATURE GRANULOCYTES 0.4 %; IMMATURE GRANULOCYTES ABSOLUTE 0.04 10/3/uL (0.0-0.11); LYMPHOCYTES 17.7 %; LYMPHOCYTES ABSOLUTE 1.92 10/3/uL (0.67-4.30); MEAN CORPUS HGB CONC 30.6 g/dL (32.0-36.0); MEAN CORPUSCULAR HEMOGLOB 27.8 pg (26.0-34.0); MEAN PLATELET VOLUME 8.8 fL (9.2-13.0); MONOCYTES 5.4 %; MONOCYTES ABSOLUTE 0.58 10/3/uL (0.21-1.20); NEUTROPHILS 74.8 %; NEUTROPHILS ABSOLUTE 8.12 10/3/uL (2.02-8.40); PLATELET COUNT 257 10/3/uL (150-400); RBC DISTRIBUTION WIDTH 14.4 % (12.0-16.0); RED CELL COUNT 3.56 10/6/uL (4.0-5.6); WHITE BLOOD CELLS 10.8 10/3/uL (4.5-10.5)
[2016-07-06 07:44] LABS: MANUAL DIFF NO %
[2016-07-06 08:04] LABS: CALCIUM, SERUM 8.8 MG/DL (8.5-10.4); CHLORIDE, SERUM 113 MMOL/L (96-112); CO2 (CARBON DIOXIDE) 29 MMOL/L (24-34); GLUCOSE, SERUM 167 MG/DL (60-99); SODIUM, SERUM 151 MMOL/L (135-148)
[2016-07-06 08:05] LABS: BUN (BLOOD UREA NITROGEN) 20 MG/DL (6-23); CREATININE 0.94 MG/DL (0.55-1.02); GFR AFRICAN AMERICAN 78 ML/MIN (>=60); GFR NON AFRICAN AMERICAN 67 ML/MIN (>=60); PHOSPHORUS, SERUM 0.9 MG/DL (2.5-4.5)
[2016-07-07 07:04] LABS: BUN (BLOOD UREA NITROGEN) 13 MG/DL (6-23); CALCIUM, SERUM 8.5 MG/DL (8.5-10.4); CHLORIDE, SERUM 119 MMOL/L (96-112); CO2 (CARBON DIOXIDE) 25 MMOL/L (24-34); CREATININE 0.75 MG/DL (0.55-1.02); GFR AFRICAN AMERICAN 102 ML/MIN (>=60); GFR NON AFRICAN AMERICAN 88 ML/MIN (>=60); POTASSIUM, SERUM 4.9 MMOL/L (3.5-5.3); SODIUM, SERUM 153 MMOL/L (135-148)
[2016-07-07 07:05] LABS: GLUCOSE, SERUM 99 MG/DL (60-99); PHOSPHORUS, SERUM 3.2 MG/DL (2.5-4.5)
[2016-07-07 07:18] LABS: BASOPHILS 0.3 %; BASOPHILS ABSOLUTE 0.03 10/3/uL (0.0-0.16); EOSINOPHILS 2.4 %; EOSINOPHILS ABSOLUTE 0.24 10/3/uL (0.0-0.53); HEMATOCRIT 32.4 % (36.0-48.0); HEMOGLOBIN 9.9 g/dL (12.0-16.0); IMMATURE GRANULOCYTES 0.7 %; IMMATURE GRANULOCYTES ABSOLUTE 0.07 10/3/uL (0.0-0.11); LYMPHOCYTES 20.4 %; MEAN CORPUS HGB CONC 30.6 g/dL (32.0-36.0); MEAN CORPUSCULAR HEMOGLOB 28.4 pg (26.0-34.0); MEAN CORPUSCULAR VOLUME 92.8 fL (80-100); MEAN PLATELET VOLUME 9.1 fL (9.2-13.0); MONOCYTES 5.2 %; MONOCYTES ABSOLUTE 0.51 10/3/uL (0.21-1.20); NEUTROPHILS ABSOLUTE 6.95 10/3/uL (2.02-8.40); PLATELET COUNT 251 10/3/uL (150-400); RBC DISTRIBUTION WIDTH 14.5 % (12.0-16.0); RED CELL COUNT 3.49 10/6/uL (4.0-5.6); WHITE BLOOD CELLS 9.8 10/3/uL (4.5-10.5)
[2016-07-07 07:20] LABS: MANUAL DIFF NO %
[2016-07-07 14:19] LABS: A/G RATIO 0.8 (0.7-1.9); ALBUMIN 2.8 G/DL (3.5-5.0); ALKALINE PHOSPHATASE 87 U/L (45-117); BUN (BLOOD UREA NITROGEN) 14 MG/DL (6-23); CALCIUM, SERUM 8.5 MG/DL (8.5-10.4); CHLORIDE, SERUM 118 MMOL/L (96-112); CO2 (CARBON DIOXIDE) 25 MMOL/L (24-34); CREATININE 0.77 MG/DL (0.55-1.02); GFR AFRICAN AMERICAN 99 ML/MIN (>=60); GFR NON AFRICAN AMERICAN 85 ML/MIN (>=60); GLOBULIN 3.6 G/DL (2.5-4.1); PHOSPHORUS, SERUM 2.7 MG/DL (2.5-4.5); PREALBUMIN 12.6 MG/DL (17.0-43.0); SGOT(AST) 25 U/L (5-40); SGPT(ALT) 15 U/L (5-65); SODIUM, SERUM 152 MMOL/L (135-148); TOTAL BILIRUBIN 0.2 MG/DL (0-1.2); TOTAL PROTEIN 6.4 G/DL (6.0-8.5); TRIGLYCERIDE 129 MG/DL (< 150)
[2016-07-07 14:20] LABS: GLUCOSE, SERUM 163 MG/DL (60-99)
[2016-07-08 07:06] LABS: BASOPHILS 0.3 %; BASOPHILS ABSOLUTE 0.02 10/3/uL (0.0-0.16); EOSINOPHILS 1.7 %; EOSINOPHILS ABSOLUTE 0.12 10/3/uL (0.0-0.53); HEMATOCRIT 34.1 % (36.0-48.0); HEMOGLOBIN 10.6 g/dL (12.0-16.0); IMMATURE GRANULOCYTES 0.7 %; IMMATURE GRANULOCYTES ABSOLUTE 0.05 10/3/uL (0.0-0.11); LYMPHOCYTES 21.7 %; LYMPHOCYTES ABSOLUTE 1.55 10/3/uL (0.67-4.30); MEAN CORPUS HGB CONC 31.1 g/dL (32.0-36.0); MEAN CORPUSCULAR HEMOGLOB 28.6 pg (26.0-34.0); MEAN CORPUSCULAR VOLUME 91.9 fL (80-100); MEAN PLATELET VOLUME 9.1 fL (9.2-13.0); MONOCYTES 6.3 %; MONOCYTES ABSOLUTE 0.45 10/3/uL (0.21-1.20); NEUTROPHILS 69.3 %; NEUTROPHILS ABSOLUTE 4.95 10/3/uL (2.02-8.40); PLATELET COUNT 221 10/3/uL (150-400); RBC DISTRIBUTION WIDTH 14.3 % (12.0-16.0); RED CELL COUNT 3.71 10/6/uL (4.0-5.6); WHITE BLOOD CELLS 7.1 10/3/uL (4.5-10.5)
[2016-07-08 07:07] LABS: MANUAL DIFF NO %
[2016-07-08 07:40] LABS: A/G RATIO 0.6 (0.7-1.9); ALBUMIN 2.5 G/DL (3.5-5.0); ALKALINE PHOSPHATASE 75 U/L (45-117); BUN (BLOOD UREA NITROGEN) 13 MG/DL (6-23); CALCIUM, SERUM 9.1 MG/DL (8.5-10.4); CHLORIDE, SERUM 114 MMOL/L (96-112); CO2 (CARBON DIOXIDE) 23 MMOL/L (24-34); CREATININE 0.77 MG/DL (0.55-1.02); GFR AFRICAN AMERICAN 99 ML/MIN (>=60); GFR NON AFRICAN AMERICAN 85 ML/MIN (>=60); GLOBULIN 4.2 G/DL (2.5-4.1); GLUCOSE, SERUM 176 MG/DL (60-99); PHOSPHORUS, SERUM 1.9 MG/DL (2.5-4.5); POTASSIUM, SERUM 4.3 MMOL/L (3.5-5.3); SGOT(AST) 18 U/L (5-40); SGPT(ALT) 11 U/L (5-65); SODIUM, SERUM 147 MMOL/L (135-148); TOTAL BILIRUBIN 0.2 MG/DL (0-1.2); TOTAL PROTEIN 6.7 G/DL (6.0-8.5)
[2016-07-08 15:07] LABS: PREALBUMIN 12.7 MG/DL (17.0-43.0)
[2016-07-09 05:45] LABS: BASOPHILS 0.4 %; BASOPHILS ABSOLUTE 0.03 10/3/uL (0.0-0.16); EOSINOPHILS 2.5 %; EOSINOPHILS ABSOLUTE 0.18 10/3/uL (0.0-0.53); HEMOGLOBIN 10.8 g/dL (12.0-16.0); IMMATURE GRANULOCYTES 0.8 %; IMMATURE GRANULOCYTES ABSOLUTE 0.06 10/3/uL (0.0-0.11); LYMPHOCYTES 20.5 %; MEAN CORPUS HGB CONC 31.8 g/dL (32.0-36.0); MEAN CORPUSCULAR HEMOGLOB 28.6 pg (26.0-34.0); MEAN CORPUSCULAR VOLUME 90.2 fL (80-100); MEAN PLATELET VOLUME 9.2 fL (9.2-13.0); MONOCYTES 7.1 %; MONOCYTES ABSOLUTE 0.52 10/3/uL (0.21-1.20); NEUTROPHILS 68.7 %; NEUTROPHILS ABSOLUTE 5.03 10/3/uL (2.02-8.40); PLATELET COUNT 187 10/3/uL (150-400); RBC DISTRIBUTION WIDTH 13.8 % (12.0-16.0); RED CELL COUNT 3.77 10/6/uL (4.0-5.6); WHITE BLOOD CELLS 7.3 10/3/uL (4.5-10.5)
[2016-07-09 05:49] LABS: MANUAL DIFF NO %
[2016-07-09 06:01] LABS: BUN (BLOOD UREA NITROGEN) 16 MG/DL (6-23); CALCIUM, SERUM 8.5 MG/DL (8.5-10.4); CHLORIDE, SERUM 110 MMOL/L (96-112); CO2 (CARBON DIOXIDE) 23 MMOL/L (24-34); CREATININE 0.69 MG/DL (0.55-1.02); GFR AFRICAN AMERICAN 111 ML/MIN (>=60); GFR NON AFRICAN AMERICAN 96 ML/MIN (>=60); POTASSIUM, SERUM 3.9 MMOL/L (3.5-5.3); PREALBUMIN 12.3 MG/DL (17.0-43.0); SODIUM, SERUM 143 MMOL/L (135-148)
[2016-07-09 06:03] LABS: GLUCOSE, SERUM 214 MG/DL (60-99); PHOSPHORUS, SERUM 2.5 MG/DL (2.5-4.5); TRIGLYCERIDE 191 MG/DL (< 150)
[2016-07-10 06:39] LABS: HEMATOCRIT 33.1 % (36.0-48.0); HEMOGLOBIN 10.2 g/dL (12.0-16.0); MEAN CORPUS HGB CONC 30.8 g/dL (32.0-36.0); MEAN CORPUSCULAR HEMOGLOB 27.6 pg (26.0-34.0); MEAN CORPUSCULAR VOLUME 89.7 fL (80-100); MEAN PLATELET VOLUME 8.9 fL (9.2-13.0); PLATELET COUNT 173 10/3/uL (150-400); RBC DISTRIBUTION WIDTH 13.8 % (12.0-16.0); RED CELL COUNT 3.69 10/6/uL (4.0-5.6); WHITE BLOOD CELLS 7.9 10/3/uL (4.5-10.5)
[2016-07-10 06:41] LABS: MANUAL DIFF YES %
[2016-07-10 06:55] LABS: BUN (BLOOD UREA NITROGEN) 19 MG/DL (6-23); CALCIUM, SERUM 8.5 MG/DL (8.5-10.4); CHLORIDE, SERUM 109 MMOL/L (96-112); CO2 (CARBON DIOXIDE) 19 MMOL/L (24-34); CREATININE 0.72 MG/DL (0.55-1.02); GFR AFRICAN AMERICAN 107 ML/MIN (>=60); GFR NON AFRICAN AMERICAN 92 ML/MIN (>=60); GLUCOSE, SERUM 193 MG/DL (60-99); SODIUM, SERUM 141 MMOL/L (135-148); TRIGLYCERIDE 152 MG/DL (< 150)
[2016-07-10 06:58] LABS: BAND NEUTROPHILS 1 %; LYMPHOCYTES 13 %; LYMPHOCYTES ABSOLUTE (CALC) 1.03 10/3/uL (0.67-4.30); MONOCYTES 1 %; MONOCYTES ABSOLUTE (CALC) 0.08 10/3/uL (0.21-1.20); NEUTROPHILS ABSOLUTE (CALC) 6.79 10/3/uL (2.02-8.40); PLATELET ESTIMATE ADQ (ADEQUATE); SEGMENTED NEUTROPHIL (0) 85 %; TOTAL NUCLEATED CELLS 100
[2016-07-10 06:59] LABS: POLYCHROMASIA 1+ (2-5/OIF) (0-1/OIF)
[2016-07-11 06:04] LABS: HEMATOCRIT 35.4 % (36.0-48.0); HEMOGLOBIN 11.1 g/dL (12.0-16.0); MEAN CORPUS HGB CONC 31.4 g/dL (32.0-36.0); MEAN CORPUSCULAR HEMOGLOB 28.2 pg (26.0-34.0); MEAN CORPUSCULAR VOLUME 90.1 fL (80-100); MEAN PLATELET VOLUME 9.5 fL (9.2-13.0); PLATELET COUNT 214 10/3/uL (150-400); RBC DISTRIBUTION WIDTH 13.7 % (12.0-16.0); RED CELL COUNT 3.93 10/6/uL (4.0-5.6); WHITE BLOOD CELLS 7.6 10/3/uL (4.5-10.5)
[2016-07-11 06:17] LABS: CALCIUM, SERUM 8.9 MG/DL (8.5-10.4); CHLORIDE, SERUM 108 MMOL/L (96-112); CO2 (CARBON DIOXIDE) 22 MMOL/L (24-34); CREATININE 0.92 MG/DL (0.55-1.02); GFR AFRICAN AMERICAN 80 ML/MIN (>=60); GFR NON AFRICAN AMERICAN 69 ML/MIN (>=60); PHOSPHORUS, SERUM 3.5 MG/DL (2.5-4.5); POTASSIUM, SERUM 3.8 MMOL/L (3.5-5.3); SODIUM, SERUM 142 MMOL/L (135-148)
[2016-07-11 06:20] LABS: BUN (BLOOD UREA NITROGEN) 40 MG/DL (6-23); GLUCOSE, SERUM 244 MG/DL (60-99)
[2016-07-11 06:21] LABS: MANUAL DIFF YES %
[2016-07-11 07:29] LABS: BAND NEUTROPHILS 4 %; HYPOCHROMIA 1+ (3-10/OIF) (0-2/OIF); LYMPHOCYTES 20 %; LYMPHOCYTES ABSOLUTE (CALC) 1.52 10/3/uL (0.67-4.30); MONOCYTES 7 %; MONOCYTES ABSOLUTE (CALC) 0.53 10/3/uL (0.21-1.20); NEUTROPHILS ABSOLUTE (CALC) 5.55 10/3/uL (2.02-8.40); PLATELET ESTIMATE ADQ (ADEQUATE); SEGMENTED NEUTROPHIL (0) 69 %; TOTAL NUCLEATED CELLS 100
[2016-07-12 05:33] LABS: BUN (BLOOD UREA NITROGEN) 43 MG/DL (6-23); CHLORIDE, SERUM 107 MMOL/L (96-112); CO2 (CARBON DIOXIDE) 24 MMOL/L (24-34); CREATININE 0.77 MG/DL (0.55-1.02); GFR AFRICAN AMERICAN 99 ML/MIN (>=60); GFR NON AFRICAN AMERICAN 85 ML/MIN (>=60); GLUCOSE, SERUM 245 MG/DL (60-99); PHOSPHORUS, SERUM 2.9 MG/DL (2.5-4.5); POTASSIUM, SERUM 3.9 MMOL/L (3.5-5.3); SODIUM, SERUM 143 MMOL/L (135-148)
[2016-07-12 05:39] LABS: BASOPHILS 0.2 %; BASOPHILS ABSOLUTE 0.02 10/3/uL (0.0-0.16); EOSINOPHILS 0.9 %; EOSINOPHILS ABSOLUTE 0.09 10/3/uL (0.0-0.53); HEMATOCRIT 34.7 % (36.0-48.0); HEMOGLOBIN 10.9 g/dL (12.0-16.0); IMMATURE GRANULOCYTES 0.9 %; IMMATURE GRANULOCYTES ABSOLUTE 0.09 10/3/uL (0.0-0.11); LYMPHOCYTES 14.2 %; LYMPHOCYTES ABSOLUTE 1.46 10/3/uL (0.67-4.30); MEAN CORPUS HGB CONC 31.4 g/dL (32.0-36.0); MEAN CORPUSCULAR HEMOGLOB 28.4 pg (26.0-34.0); MEAN CORPUSCULAR VOLUME 90.4 fL (80-100); MEAN PLATELET VOLUME 9.8 fL (9.2-13.0); MONOCYTES 5.3 %; MONOCYTES ABSOLUTE 0.55 10/3/uL (0.21-1.20); NEUTROPHILS 78.5 %; NEUTROPHILS ABSOLUTE 8.09 10/3/uL (2.02-8.40); PLATELET COUNT 213 10/3/uL (150-400); RBC DISTRIBUTION WIDTH 13.8 % (12.0-16.0); RED CELL COUNT 3.84 10/6/uL (4.0-5.6); WHITE BLOOD CELLS 10.3 10/3/uL (4.5-10.5)
[2016-07-12 05:44] LABS: MANUAL DIFF NO %
[2016-07-13 07:03] LABS: BASOPHILS 0.8 %; BASOPHILS ABSOLUTE 0.06 10/3/uL (0.0-0.16); EOSINOPHILS 1.6 %; EOSINOPHILS ABSOLUTE 0.12 10/3/uL (0.0-0.53); HEMATOCRIT 34.7 % (36.0-48.0); IMMATURE GRANULOCYTES 1.5 %; IMMATURE GRANULOCYTES ABSOLUTE 0.11 10/3/uL (0.0-0.11); LYMPHOCYTES 22.8 %; LYMPHOCYTES ABSOLUTE 1.72 10/3/uL (0.67-4.30); MEAN CORPUS HGB CONC 31.7 g/dL (32.0-36.0); MEAN CORPUSCULAR HEMOGLOB 28.4 pg (26.0-34.0); MEAN CORPUSCULAR VOLUME 89.7 fL (80-100); MEAN PLATELET VOLUME 9.7 fL (9.2-13.0); MONOCYTES 7.9 %; NEUTROPHILS 65.4 %; NEUTROPHILS ABSOLUTE 4.94 10/3/uL (2.02-8.40); PLATELET COUNT 235 10/3/uL (150-400); RBC DISTRIBUTION WIDTH 14.1 % (12.0-16.0); RED CELL COUNT 3.87 10/6/uL (4.0-5.6); WHITE BLOOD CELLS 7.6 10/3/uL (4.5-10.5)
[2016-07-13 07:08] LABS: MANUAL DIFF NO %
[2016-07-13 07:16] LABS: BUN (BLOOD UREA NITROGEN) 34 MG/DL (6-23); CALCIUM, SERUM 9.1 MG/DL (8.5-10.4); CHLORIDE, SERUM 111 MMOL/L (96-112); CO2 (CARBON DIOXIDE) 24 MMOL/L (24-34); CREATININE 0.56 MG/DL (0.55-1.02); GFR AFRICAN AMERICAN 119 ML/MIN (>=60); GFR NON AFRICAN AMERICAN 103 ML/MIN (>=60); GLUCOSE, SERUM 110 MG/DL (60-99); PHOSPHORUS, SERUM 3.2 MG/DL (2.5-4.5); POTASSIUM, SERUM 4.1 MMOL/L (3.5-5.3); SODIUM, SERUM 146 MMOL/L (135-148)
[2016-07-14 05:33] LABS: BASOPHILS 0.6 %; BASOPHILS ABSOLUTE 0.04 10/3/uL (0.0-0.16); EOSINOPHILS 1.7 %; EOSINOPHILS ABSOLUTE 0.11 10/3/uL (0.0-0.53); HEMATOCRIT 32.9 % (36.0-48.0); HEMOGLOBIN 10.1 g/dL (12.0-16.0); IMMATURE GRANULOCYTES 1.7 %; IMMATURE GRANULOCYTES ABSOLUTE 0.11 10/3/uL (0.0-0.11); LYMPHOCYTES 21.1 %; LYMPHOCYTES ABSOLUTE 1.39 10/3/uL (0.67-4.30); MANUAL DIFF NO %; MEAN CORPUS HGB CONC 30.7 g/dL (32.0-36.0); MEAN CORPUSCULAR HEMOGLOB 27.8 pg (26.0-34.0); MEAN CORPUSCULAR VOLUME 90.6 fL (80-100); MEAN PLATELET VOLUME 9.8 fL (9.2-13.0); MONOCYTES 7.4 %; MONOCYTES ABSOLUTE 0.49 10/3/uL (0.21-1.20); NEUTROPHILS 67.5 %; NEUTROPHILS ABSOLUTE 4.46 10/3/uL (2.02-8.40); PLATELET COUNT 244 10/3/uL (150-400); RED CELL COUNT 3.63 10/6/uL (4.0-5.6); WHITE BLOOD CELLS 6.6 10/3/uL (4.5-10.5)
[2016-07-14 05:40] LABS: BUN (BLOOD UREA NITROGEN) 33 MG/DL (6-23); CALCIUM, SERUM 9.1 MG/DL (8.5-10.4); CHLORIDE, SERUM 110 MMOL/L (96-112); CO2 (CARBON DIOXIDE) 25 MMOL/L (24-34); CREATININE 0.65 MG/DL (0.55-1.02); GFR AFRICAN AMERICAN 113 ML/MIN (>=60); GFR NON AFRICAN AMERICAN 98 ML/MIN (>=60); PHOSPHORUS, SERUM 3.2 MG/DL (2.5-4.5); POTASSIUM, SERUM 3.8 MMOL/L (3.5-5.3); SODIUM, SERUM 145 MMOL/L (135-148); TRIGLYCERIDE 119 MG/DL (< 150)
[2016-07-14 05:41] LABS: GLUCOSE, SERUM 171 MG/DL (60-99)
[2016-07-15 05:42] LABS: BUN (BLOOD UREA NITROGEN) 34 MG/DL (6-23); CALCIUM, SERUM 8.9 MG/DL (8.5-10.4); CHLORIDE, SERUM 111 MMOL/L (96-112); CO2 (CARBON DIOXIDE) 27 MMOL/L (24-34); CREATININE 0.75 MG/DL (0.55-1.02); GFR AFRICAN AMERICAN 102 ML/MIN (>=60); GFR NON AFRICAN AMERICAN 88 ML/MIN (>=60); GLUCOSE, SERUM 88 MG/DL (60-99); POTASSIUM, SERUM 4.4 MMOL/L (3.5-5.3); SODIUM, SERUM 145 MMOL/L (135-148)
[2016-07-16 07:21] LABS: BUN (BLOOD UREA NITROGEN) 37 MG/DL (6-23); CALCIUM, SERUM 8.9 MG/DL (8.5-10.4); CHLORIDE, SERUM 104 MMOL/L (96-112); CO2 (CARBON DIOXIDE) 26 MMOL/L (24-34); CREATININE 0.72 MG/DL (0.55-1.02); GFR AFRICAN AMERICAN 107 ML/MIN (>=60); GFR NON AFRICAN AMERICAN 92 ML/MIN (>=60); PHOSPHORUS, SERUM 3.5 MG/DL (2.5-4.5); POTASSIUM, SERUM 4.1 MMOL/L (3.5-5.3); SODIUM, SERUM 142 MMOL/L (135-148)
[2016-07-16 07:22] LABS: GLUCOSE, SERUM 186 MG/DL (60-99)
[2016-07-19 07:05] LABS: CHLORIDE, SERUM 98 MMOL/L (96-112); CO2 (CARBON DIOXIDE) 30 MMOL/L (24-34); CREATININE 0.82 MG/DL (0.55-1.02); GFR AFRICAN AMERICAN 91 ML/MIN (>=60); GFR NON AFRICAN AMERICAN 79 ML/MIN (>=60); POTASSIUM, SERUM 3.8 MMOL/L (3.5-5.3); SODIUM, SERUM 140 MMOL/L (135-148)
[2016-07-19 07:12] LABS: BUN (BLOOD UREA NITROGEN) 25 MG/DL (6-23); GLUCOSE, SERUM 88 MG/DL (60-99)
[2016-07-20 06:52] LABS: CALCIUM, SERUM 8.7 MG/DL (8.5-10.4); CHLORIDE, SERUM 94 MMOL/L (96-112); CO2 (CARBON DIOXIDE) 32 MMOL/L (24-34); CREATININE 0.82 MG/DL (0.55-1.02); GFR AFRICAN AMERICAN 91 ML/MIN (>=60); GFR NON AFRICAN AMERICAN 79 ML/MIN (>=60); SODIUM, SERUM 138 MMOL/L (135-148)
[2016-07-20 06:54] LABS: BUN (BLOOD UREA NITROGEN) 19 MG/DL (6-23); GLUCOSE, SERUM 45 MG/DL (60-99); POTASSIUM, SERUM 4.4 MMOL/L (3.5-5.3)
[2016-07-21 08:41] LABS: BUN (BLOOD UREA NITROGEN) 27 MG/DL (6-23); CALCIUM, SERUM 8.7 MG/DL (8.5-10.4); CHLORIDE, SERUM 94 MMOL/L (96-112); CO2 (CARBON DIOXIDE) 27 MMOL/L (24-34); CREATININE 1.01 MG/DL (0.55-1.02); GFR AFRICAN AMERICAN 71 ML/MIN (>=60); GFR NON AFRICAN AMERICAN 61 ML/MIN (>=60); GLUCOSE, SERUM 101 MG/DL (60-99); POTASSIUM, SERUM 4.4 MMOL/L (3.5-5.3); SODIUM, SERUM 136 MMOL/L (135-148)
[2016-07-22 06:35] LABS: BUN (BLOOD UREA NITROGEN) 24 MG/DL (6-23); CALCIUM, SERUM 9.1 MG/DL (8.5-10.4); CHLORIDE, SERUM 90 MMOL/L (96-112); CO2 (CARBON DIOXIDE) 32 MMOL/L (24-34); CREATININE 1.05 MG/DL (0.55-1.02); GFR AFRICAN AMERICAN 68 ML/MIN (>=60); GFR NON AFRICAN AMERICAN 58 ML/MIN (>=60); GLUCOSE, SERUM 104 MG/DL (60-99); POTASSIUM, SERUM 3.7 MMOL/L (3.5-5.3); SODIUM, SERUM 132 MMOL/L (135-148)
== END 2016-07-22 15:17 | disposition hospice, inpatient (51) | DRG 326 ==
LOC: ER 22:05 → 1SO 07-02 00:51
PROVIDERS: Emergency Medicine; Hospitalist; Internal Medicine; Internal Medicine Hematology & Oncology; Surgery
PROC: 0D1B0ZB Bypass Ileum to Ileum, Open Approach (ICD-10-PCS; principal; 2016-07-04 12:30)
PROC: 0DH60UZ Insertion of Feeding Device into Stomach, Open Approach (ICD-10-PCS; 2016-07-04 12:30)
PROC: 0DN80ZZ Release Small Intestine, Open Approach (ICD-10-PCS; 2016-07-04 12:30)
PROC: 02HV33Z Insertion of Infusion Device into Superior Vena Cava, Percutaneous Approach (ICD-10-PCS; 2016-07-07)
PROC: 4A02X4A Measurement of Cardiac Electrical Activity, Guidance, External Approach (ICD-10-PCS; 2016-07-07)
PROC: 3E0G76Z Introduction of Nutritional Substance into Upper GI, Via Natural or Artificial Opening (ICD-10-PCS; 2016-07-08)
DX: C78.4 Secondary malignant neoplasm of small intestine (principal); E43 Unspecified severe protein-calorie malnutrition; G92 Toxic encephalopathy; N17.9 Acute kidney failure, unspecified; C80.0 Disseminated malignant neoplasm, unspecified; E87.0 Hyperosmolality and hypernatremia; K56.60 Unspecified intestinal obstruction; E87.1 Hypo-osmolality and hyponatremia; Z99.81 Dependence on supplemental oxygen; C67.9 Malignant neoplasm of bladder, unspecified; E87.6 Hypokalemia; I10 Essential (primary) hypertension; J44.9 Chronic obstructive pulmonary disease, unspecified; Z68.20 Body mass index [BMI] 20.0-20.9, adult; K59.03 Drug induced constipation; T40.605A Adverse effect of unspecified narcotics, initial encounter; E11.65 Type 2 diabetes mellitus with hyperglycemia; Z66 Do not resuscitate; Z51.5 Encounter for palliative care; F43.22 Adjustment disorder with anxiety; F41.8 Other specified anxiety disorders; Z79.4 Long term (current) use of insulin; Z87.891 Personal history of nicotine dependence; Z79.899 Other long term (current) drug therapy; Z86.73 Personal history of transient ischemic attack (TIA), and cerebral infarction without residual deficits
CPT/HCPCS: 36569; 74000; 74020; 74022; 74176; 74250; 80048; 80053; 80069; 81001; 82330; 82570; 82962; 83605; 83690; 83735; 83930; 83935; 84100; 84132; 84134; 84300; 84478; 84703; 85025; 87040; 88307; 88331; 93005; 96374; 97110-GP; 97116-GP; 97161-GP; 99285; A9270-GY; C1751; J0360; J0690; J1170; J2250; J2370; J2405; J2550; J2710; J2765; J3010; J3360; J3480